=== PATIENT | male | born 1950 | race Caucasian/White ===

== ENCOUNTER 2022-08-12 08:08 | Outpatient (CLI) | payer MEDICARE, SELFPAY ==
[2022-08-12 13:20] LABS: Chloride* 100 mmol/L (96-114); Potassium* 4.1 mmol/L (3.6-5.1); Sodium* 137 mmol/L (135-149)
[2022-08-12 13:22] LABS: Cholesterol* 132 mg/dL (90-199); Creatinine* 1.3 mg/dL (0.5-1.5); Estimated Glomerular Filt Rate 59 ml/min
[2022-08-12 13:23] LABS: Blood Urea Nitrogen* 39 mg/dL (7-30); Calcium* 9.8 mg/dL (8.4-10.6); Carbon Dioxide* 28 mmol/L (20-32); Glucose* 158 mg/dL (60-115); Triglycerides* 164 mg/dL (40-149)
[2022-08-12 13:24] LABS: HDL Cholesterol* 38 mg/dL (>=40); LDL Cholesterol Calculated 61 mg/dL (<100)
[2022-08-12 13:41] LABS: PSA Screen* 0.23 ng/mL (0.10-4.00)
== END 2022-08-12 08:09 | disposition home or self-care (01) ==
PROVIDERS: PCP Family Medicine; Visit Provider Family Medicine
DX: I10 Essential (primary) hypertension (principal); E78.5 Hyperlipidemia, unspecified; Z12.5 Encounter for screening for malignant neoplasm of prostate
CPT/HCPCS: 80048; 80061; 84153

== ENCOUNTER 2023-08-03 08:00 | Outpatient (CLI) | payer MEDICARE, SELFPAY | END 2023-08-03 08:01 | disposition home or self-care (01) | LOC: NFLDREF 08-04 07:32 | PROVIDERS: PCP Family Medicine; Referring Provider Family Medicine; Visit Provider Family Medicine | DX: E78.5 Hyperlipidemia, unspecified (principal); I10 Essential (primary) hypertension; E13.9 Other specified diabetes mellitus without complications | CPT/HCPCS: 80048; 80061 ==

== ENCOUNTER 2024-01-31 08:46 | Outpatient (CLI) | payer MEDICARE, SELFPAY | END 2024-01-31 08:47 | disposition home or self-care (01) | LOC: LKVREF 08:47 | PROVIDERS: PCP Family Medicine; Visit Provider Family Medicine | DX: I10 Essential (primary) hypertension (principal) | CPT/HCPCS: 80048 ==

== ENCOUNTER 2024-07-17 09:13 | Outpatient (CLI) | payer MEDICARE, SELFPAY | END 2024-07-17 09:14 | disposition home or self-care (01) | PROVIDERS: PCP Family Medicine; Visit Provider Family Medicine | DX: R06.00 Dyspnea, unspecified (principal); E13.9 Other specified diabetes mellitus without complications; I10 Essential (primary) hypertension; E78.2 Mixed hyperlipidemia; Z13.21 Encounter for screening for nutritional disorder; Z13.29 Encounter for screening for other suspected endocrine disorder | CPT/HCPCS: 80048; 80061; 82607; 84443 ==

== ENCOUNTER 2024-09-30 07:37 | Outpatient (CLI) | payer MEDICARE, SELFPAY | END 2024-09-30 07:38 | disposition home or self-care (01) | PROVIDERS: PCP Family Medicine; Visit Provider Family Medicine | DX: R06.00 Dyspnea, unspecified (principal); I51.7 Cardiomegaly; I35.0 Nonrheumatic aortic (valve) stenosis | CPT/HCPCS: 93306 ==

== ENCOUNTER 2025-08-06 09:00 | Outpatient (CLI) | payer MEDICARE, BC, SELFPAY | END 2025-08-06 09:01 | disposition home or self-care (01) | PROVIDERS: PCP Family Medicine; Visit Provider Family Medicine | DX: E78.2 Mixed hyperlipidemia (principal); I10 Essential (primary) hypertension; M25.50 Pain in unspecified joint | CPT/HCPCS: 80048; 80061; 86140; 86618 ==